=== PATIENT | male | born 1985 | race Caucasian/White ===

== ENCOUNTER → 2016-11-29 | Day surgery (SDC) | payer OTHER ==
[~2016-11-29] VITALS: Ht 185.4 cm; Wt 90.7 kg
[~2016-11-29] MED LIST: ACET50TAOT PO; ACETAMINOPH W/CODEINE #3 TAB UD PO PRN; GLYCOPYRROLATE INJ 0.2 MG/ML 2 ML VIAL As Ordered ONE; IBUP-1114 PO; LIDOCAINE 1% SDV 5 ML VIAL SQ PRN; LIDOCAINE 2% INJ 100 MG/5 ML SDV (FOR ANES.) As Ordered ONE; LR 1,000 ML IV ONE; LR 1,000 ML IV SCH; MIDAZOLAM INJ 2 MG/2 ML VIAL (J2250) As Ordered ONE; MORPHINE 10 MG/ML 1ML VIAL IV PRN; NEOSTIGMINE 1MG/ML 5 ML SYRINGE (J2710) As Ordered ONE; ONDANSETRON 4MG/2ML VIAL (J2405) As Ordered ONE; ONDANSETRON 4MG/2ML VIAL (J2405) IV PRN; PROPOFOL 200 MG/20 ML VIAL As Ordered ONE; ROCURONIUM BROMIDE 50 MG/5 ML VIAL/SYRINGE As Ordered ONE; SCOPOLAMINE 1.5 MG TRANSDERMAL As Ordered ONE; SCOPOLAMINE 1.5 MG TRANSDERMAL TOP ONE; SUCCINYLCHOLINE 100 MG/5 ML SYRINGE (J0330) As Ordered ONE; dexameTHASONE 4 MG/ML 1ML VIAL (J1100) As Ordered ONE; fentaNYL 100 MCG/2 ML INJECTION (J3010) As Ordered ONE; fentaNYL 100 MCG/2 ML INJECTION (J3010) IV PRN
[2016-11-29] MEDS: LIDOCAINE W/EPINEPHRINE 1% 20ML VIAL As Ordered ONE ×2 (09:15→09:38)
[2016-11-29 11:30] VITALS: BP 132/74
--- NOTE | 2016-11-29 11:38 | RO ---
DATE OF PROCEDURE: 11/29/2016 PREOPERATIVE DIAGNOSIS: Right-sided hearing loss. POSTOPERATIVE DIAGNOSIS: Right-sided hearing loss. PROCEDURE: Insertion of implant for bone anchored hearing aid. SURGEON: Dr. Jaspal Kelley SCALLOP BINDER: ANESTHESIA: . DESCRIPTION OF PROCEDURE: Under general anesthesia with the patient intubated, the patient was draped in the usual manner. I shaved the hair over the area. The area was prepped and draped in the usual manner. I infiltrated with lidocaine and epinephrine. Prior to doing that, I had measured the placement of the implant, which would be 5 cm from the external auditory canal post superior. Once I did that, I checked the position of the prosthesis. Then, I measured the distance from the skin to the bone, which measured 7 mm. I then used a 10 mm implant. Once that was done, then I mapped out an incision anterior to where the implant would be and infiltrated with lidocaine and epinephrine. I divided the skin and subcutaneous tissues. Bleeding was controlled with bipolar cautery. I undermined posteriorly, identified the site of where the implant should be. I then made an incision in the periosteum and elevated the periosteum. Any bleeding was controlled by bipolar cautery. Once this was done, then I drilled first with a small hole and then with a large hole and countersink. I checked to make sure that there was bone in the base of the drill, and there was. So, then the appropriate prosthesis was then placed with a screw. I applied it without irrigation first and then with irrigation and to a 32 pressure torque. The prosthesis did fit flush with the bone. So, then I used the 5.0 skin punch and at the appropriate place made a punch hole. I controlled any bleeding with bipolar cautery. Once that was done, then I placed the screw through the hole so that it protruded into the skin surface. Once this was done, everything looked very good. I checked to make sure there was no bleeding, and if there was, I controlled it with bipolar cautery. I sutured the wound with 3-0 Prolene. I then placed a dressing and the cap. The wound was dressed. The patient tolerated the procedure well and was extubated and transferred to the recovery room in excellent condition.
== END | disposition home or self-care (01) ==
LOC: M SDC 07:07
PROVIDERS: ATTEND Otolaryngology
DX: H90.41 Sensorineural hearing loss, unilateral, right ear, with unrestricted hearing on the contralateral side (principal); M41.9 Scoliosis, unspecified; R29.898 Other symptoms and signs involving the musculoskeletal system; R41.3 Other amnesia; G47.9 Sleep disorder, unspecified; F17.290 Nicotine dependence, other tobacco product, uncomplicated; Z91.048 Other nonmedicinal substance allergy status; Z87.820 Personal history of traumatic brain injury; Z87.81 Personal history of (healed) traumatic fracture; Z87.442 Personal history of urinary calculi
CPT/HCPCS: 69714; J0330; J1100; J2250; J2405; J2710; J3010; L8690